=== PATIENT | male | born 1955 | race Caucasian/White ===

== ENCOUNTER 2020-11-24 15:59 | Inpatient (IN) | payer BC, OTHER ==
[~2020-11-24] VITALS: Ht 170.2 cm; Wt 97.0 kg
[2020-11-24 16:37] LABS: BASOPHILS # (AUTO) 0.1 X10'3 (0-0.2); EOSINOPHILS # (AUTO) 0.2 X10'3 (0-0.9); EOSINOPHILS % (AUTO) 2.1 % (0-6); HEMATOCRIT 40.6 % (42.0-52.0); HEMOGLOBIN 13.7 g/dl (14.0-17.9); LYMPHOCYTES # (AUTO) 1.7 X10'3 (1.1-4.8); LYMPHOCYTES % (AUTO) 23.1 % (21-51); MEAN CORPUSCULAR HEMOGLOBIN 30.3 PG (27.0-31.0); MEAN CORPUSCULAR HGB CONC 33.8 g/dL (33.0-36.5); MEAN CORPUSCULAR VOLUME 89.7 FL (78-98); MEAN PLATELET VOLUME 7.7 FL (7.4-10.4); MONOCYTES # (AUTO) 0.6 X10'3 (0-0.9); MONOCYTES % (AUTO) 7.9 % (2-12); NEUTROPHILS # (AUTO) 4.9 X10'3 (1.8-7.7); NEUTROPHILS % (AUTO) 65.9 % (42-75); PLATELET COUNT 219 X10'3 (140-440); RED BLOOD COUNT 4.52 X10'6 (4.70-6.10); WHITE BLOOD COUNT 7.4 X10'3 (4.5-11.0)
[2020-11-24 16:46] LABS: ALANINE AMINOTRANSFERASE 44 U/L (12-78); ALBUMIN 3.9 G/DL (3.4-5.0); ALKALINE PHOSPHATASE 41 IU/L (46-116); ANION GAP 8 (8-16); ASPARTATE AMINO TRANSFERASE 24 U/L (10-37); BILIRUBIN,TOTAL 0.6 MG/DL (0.1-1.0); BLOOD UREA NITROGEN 19 MG/DL (7-18); BUN/CREATININE RATIO 20.2 (5.4-32.0); CALCIUM 9.1 MG/DL (8.5-10.1); CHLORIDE 106 MMOL/L (99-107); CREATININE 0.94 MG/DL (0.60-1.10); GLUCOSE 93 MG/DL (70-104); POTASSIUM 4.3 MMOL/L (3.5-5.1); SODIUM 141 MMOL/L (135-145); TOTAL CARBON DIOXIDE 27.1 MMOL/L (24-32); TOTAL PROTEIN 7.7 G/DL (6.4-8.2); eGFR 81 ML/MIN
--- NOTE | 2020-11-24 16:53 | NUR ---
edgardo, pts called. informed her doing a cardiac work up, ekg, blood draws.
--- NOTE | 2020-11-24 16:56 | NUR ---
WITNESSED EPISODE OF COMPLETE BLOCK. PRINTOUT OBTAINED. S/S BLURRED VISION, HEAT AND PRESSURE RUSHING UP INTO HEAD, PRESSURE TO LEFT CHEST AREA. INFORMED ALEXANDRO MENSAH. WILL BE MOVING PT TO FRONT ROOM.
[2020-11-24 17:02] LABS: D-DIMER 1.26 MG/L FEU (0-0.50)
[2020-11-24] MEDS ORDERED: propofol 1000mg/100ml bottle 100 ML IV SCH (17:10)
[2020-11-24] MEDS ORDERED: ringers solution, lacted 1,000 ML IV SCH (17:30)
[2020-11-24] MEDS ORDERED: morphine 4 MG/ML inj SYRINge IV PRN (17:30)
[2020-11-24] MEDS ORDERED: ondansetron/PF 4mg/2ml inj IV PRN ×2 (17:30→19:00)
[2020-11-24] MEDS ORDERED: enalaprilat dihydrate 2.5mg/2ml vial IV PRN (17:30)
[2020-11-24] MEDS ORDERED: fentaNYL/PF 50MCG/1 ML 2ML syringe IV PRN ×2 (17:30)
[2020-11-24] MEDS ORDERED: hydrALAZINE 20mg/ml inj. IV PRN (17:30)
[2020-11-24] MEDS ORDERED: morphine 2 MG/ML inj. syringe IV PRN (17:30)
[2020-11-24] MEDS ORDERED: CHOL10006 PO (18:06)
[2020-11-24] MEDS ORDERED: ERGO500041 PO (18:06)
[2020-11-24] MEDS ORDERED: METO-395 PO (18:06)
[2020-11-24] MEDS ORDERED: LISI20TA28 PO (18:06)
[2020-11-24] MEDS ORDERED: SLEEP AID PO (18:08)
--- NOTE | 2020-11-24 18:50 | NUR ---
attempted to jayleen report to [facility]. floor states they will call er shortly
[2020-11-24] MEDS ORDERED: acetaminophen 325mg tablet PO PRN (19:00)
[2020-11-24] MEDS ORDERED: magnesium 2GM in 50ml NS 50 ML IV PRN (19:00)
[2020-11-24] MEDS ORDERED: magnesium 4gm in 100ml NS 100 ML IV PRN (19:00)
[2020-11-24] MEDS ORDERED: magnesium Cl slow-release 64mg tablet PO PRN (19:00)
[2020-11-24] MEDS ORDERED: potassium Cl 40MEQ/1/2NS 520ml 520 ML IV PRN ×2 (19:00)
[2020-11-24] MEDS ORDERED: potassium Cl 20 mEq SR tablet PO PRN ×2 (19:00)
--- NOTE | 2020-11-24 19:01 | NUR ---
dr josé at bedside
--- NOTE | 2020-11-24 19:02 | NUR ---
called [facility] for report . staff states they are busy and unable to take report. charge nurse notified
[2020-11-24] MEDS: K and/or MAG REPLACEMENT MC SCH (20:00)
[2020-11-24] MEDS: normal saline 1000ml 1,000 ML IV SCH (20:32)
[2020-11-24 22:05] VITALS: BP 147/84
--- NOTE | 2020-11-24 22:05 | NUR ---
Pt arrived in the unit from ER via gurney. Pt is in no acute distress and was oriented in the unit. VS : 147/84 72 bpm, 18 resp, O2 sat 96% in room air. MRSA swab done.
[2020-11-24] MEDS ORDERED: propofol inj 20 ML IV ONE ×2 (22:19→22:45)
[2020-11-24] MEDS ORDERED: LIDOcaine 1% 30ml preserv. free vial ONE (22:23)
--- NOTE | 2020-11-24 22:30 | NUR ---
Report given to PETR Causey prior to sending pt to OR. Pt was taken off the unit to OR @ 2230 for pacemaker placement with consent in the chart.
[2020-11-24] MEDS ORDERED: ceFAZolin 1000mg inj ONE ×2 (22:45)
[2020-11-25] VITALS (21 sets, daily range): BP systolic 98–142; BP diastolic 61–94
[2020-11-25] MEDS ORDERED: ceFAZolin/D5W- 1GM premix 50 ML IV SCH
--- NOTE | 2020-11-25 00:10 | NUR ---
ADMITTED TO PACU FROM OR ACCOMPANIED BY ANESTHESIA. INTIAL PHYSICAL ASSESSMENT DONE AND RECORDED. REPORT RECEIVED FROM ANESTHESIA.
--- NOTE | 2020-11-25 00:10 | NUR ---
ADMITTED TO PACU FROM OR ACCOMPANIED BY ANESTHESIA. INTIAL PHYSICAL ASSESSMENT DONE AND RECORDED. REPORT RECEIVED FROM ANESTHESIA.
[2020-11-25] MEDS ORDERED: ondansetron/PF 4mg/2ml inj IV PRN (00:15)
[2020-11-25] MEDS ORDERED: HYDROmorphone inj. 0.5 MG/0.5 ML DISP.SYRIN IV PRN (00:20)
--- NOTE | 2020-11-25 00:41 | NUR ---
Received post op report from PETR Causey.
--- NOTE | 2020-11-25 01:00 | NUR ---
PACU DISCHARGE CRITERIA MET, REPORT GIVEN TO FLOOR. DENIES PAIN OR DISCOMFORT, TRANSFERRED TO ROOM IN STABLE GOOD CONDITION. PCXR DONE DR MARION REVIEWED.
--- NOTE | 2020-11-25 01:24 | NUR ---
Pt's K+ level is 4.3. Dr. Arnold ordered to hold KCL 20 mEq in D5W-1/2 NS bag until morning.
[2020-11-25] MEDS: HYDROcodone/acetaminophen 10/325mg tab PO PRN ×3 (03:12→23:17)
[2020-11-25 05:21] LABS: BASOPHILS # (AUTO) 0.1 X10'3 (0-0.2); BASOPHILS % (AUTO) 0.7 % (0-1); EOSINOPHILS # (AUTO) 0.2 X10'3 (0-0.9); EOSINOPHILS % (AUTO) 1.9 % (0-6); HEMATOCRIT 40.8 % (42.0-52.0); HEMOGLOBIN 13.6 g/dl (14.0-17.9); LYMPHOCYTES # (AUTO) 1.6 X10'3 (1.1-4.8); LYMPHOCYTES % (AUTO) 18.3 % (21-51); MEAN CORPUSCULAR HEMOGLOBIN 30.3 PG (27.0-31.0); MEAN CORPUSCULAR HGB CONC 33.2 g/dL (33.0-36.5); MEAN CORPUSCULAR VOLUME 91.1 FL (78-98); MEAN PLATELET VOLUME 8.2 FL (7.4-10.4); MONOCYTES # (AUTO) 0.6 X10'3 (0-0.9); MONOCYTES % (AUTO) 6.5 % (2-12); NEUTROPHILS # (AUTO) 6.4 X10'3 (1.8-7.7); NEUTROPHILS % (AUTO) 72.6 % (42-75); PLATELET COUNT 211 X10'3 (140-440); RED BLOOD COUNT 4.48 X10'6 (4.70-6.10); RED CELL DISTRIBUTION WIDTH 13.9 % (11.5-14.5); WHITE BLOOD COUNT 8.8 X10'3 (4.5-11.0)
[2020-11-25 05:34] LABS: ALBUMIN 3.3 G/DL (3.4-5.0); ANION GAP 7 (8-16); BLOOD UREA NITROGEN 19 MG/DL (7-18); BUN/CREATININE RATIO 21.1 (5.4-32.0); CALCIUM 8.7 MG/DL (8.5-10.1); CHLORIDE 108 MMOL/L (99-107); GLUCOSE 157 MG/DL (70-104); MAGNESIUM 1.9 MG/DL (1.5-2.4); POTASSIUM 3.9 MMOL/L (3.5-5.1); SODIUM 141 MMOL/L (135-145); TOTAL CARBON DIOXIDE 25.7 MMOL/L (24-32); TRIGLYCERIDES 147 MG/DL (20-135); eGFR 85 ML/MIN
--- NOTE | 2020-11-25 05:46 | NUR ---
Pt who just had a pacemaker placed this morning had a Troponin lab order that was not cancelled. Troponin lab was checked this morning, and the result was expected to be high (0.54 ). MD was notified of the result and stated that it is expected.
--- NOTE | 2020-11-25 06:23 | NUR ---
Problems reprioritized. Patient report given, questions answered & plan of care reviewed with PETR Miles.
--- NOTE | 2020-11-25 06:25 | NUR ---
Patient in room PCU 3028. I have received report from PETR Matthew and had the opportunity to ask questions and assume patient care.
[2020-11-25] MEDS: ceFAZolin/D5W- 1GM premix 50 ML IV SCH ×3 (07:27→15:09)
[2020-11-25] MEDS ORDERED: [UNRECOGNIZED DRUG - CODE] PO (07:35)
[2020-11-25] MEDS ORDERED: MELA3CAP PO (07:35)
[2020-11-25] MEDS: K and/or MAG REPLACEMENT MC SCH ×2 (08:00→20:00)
[2020-11-25] MEDS: potassium CL 20mEq in D5-1/2NS 1,000 ML IV SCH ×3 (08:15→16:15)
--- NOTE | 2020-11-25 14:25 | NUR ---
Problems reprioritized. Patient report given, questions answered & plan of care reviewed with PETR Navarro.
--- NOTE | 2020-11-25 14:55 | NUR ---
Called CT Scan for contrast form, IV and average heart rates. After obtaining all information it was advised to contact Danii at [facility] to input orders to obtain a heart rate only in the 65s. Called Kari at [phone] who acknowledged Lopressor meds and will input orders when can. After orders give to pt and keep in contact with CT, pt in wheelchair and ready.
[2020-11-25 15:07] LABS: HEMOGLOBIN A1C 6.2 % (4.5-6.2)
[2020-11-25] MEDS ORDERED: metoprolol tartrate 1mg/ml inj IV PRN (16:05)
[2020-11-25] MEDS ORDERED: atropine 0.1mg/ml 10ml syringe IV PRN (16:10)
[2020-11-25] MEDS ORDERED: IODIXANOL 320 MG/ML 150ml INFUS..BTL IV ONE (17:00)
[2020-11-25] MEDS ORDERED: MELATONIN PO PRN (17:10)
[2020-11-25] MEDS ORDERED: [UNRECOGNIZED DRUG - OTHER] PO PRN (17:10)
[2020-11-25] MEDS ORDERED: [UNRECOGNIZED DRUG - OTHER] PO PRN (17:10)
[2020-11-25] MEDS: vitamin D (cholecalciferol) 1,000 unit tablet PO SCH (19:41)
[2020-11-25] MEDS ORDERED: lactobacillus rhamnosus 10,000 MMU CELLS/CAPSULE PO SCH (20:00)
[2020-11-25] MEDS: lisinopril 20mg tablet PO SCH (20:46)
[2020-11-25] MEDS ORDERED: diphenhydrAMINE 25mg capsule PO PRN (22:20)
[2020-11-25] MEDS: normal saline 1000ml 1,000 ML IV SCH (22:20)
[2020-11-26] VITALS (12 sets, daily range): BP systolic 95–143; BP diastolic 59–83
[2020-11-26 06:09] LABS: BASOPHILS # (AUTO) 0.1 X10'3 (0-0.2); BASOPHILS % (AUTO) 0.7 % (0-1); EOSINOPHILS # (AUTO) 0.3 X10'3 (0-0.9); EOSINOPHILS % (AUTO) 3.7 % (0-6); HEMATOCRIT 42.4 % (42.0-52.0); HEMOGLOBIN 14.4 g/dl (14.0-17.9); LYMPHOCYTES # (AUTO) 2.3 X10'3 (1.1-4.8); LYMPHOCYTES % (AUTO) 24.7 % (21-51); MEAN CORPUSCULAR HEMOGLOBIN 30.7 PG (27.0-31.0); MEAN CORPUSCULAR VOLUME 90.3 FL (78-98); MEAN PLATELET VOLUME 7.9 FL (7.4-10.4); MONOCYTES # (AUTO) 1.1 X10'3 (0-0.9); NEUTROPHILS # (AUTO) 5.4 X10'3 (1.8-7.7); NEUTROPHILS % (AUTO) 58.9 % (42-75); PLATELET COUNT 208 X10'3 (140-440); RED BLOOD COUNT 4.69 X10'6 (4.70-6.10); RED CELL DISTRIBUTION WIDTH 13.9 % (11.5-14.5); WHITE BLOOD COUNT 9.1 X10'3 (4.5-11.0)
[2020-11-26 06:27] LABS: ALBUMIN 3.4 G/DL (3.4-5.0); ANION GAP 6 (8-16); BLOOD UREA NITROGEN 16 MG/DL (7-18); BUN/CREATININE RATIO 15.1 (5.4-32.0); CHLORIDE 106 MMOL/L (99-107); CREATININE 1.06 MG/DL (0.60-1.10); GLUCOSE 105 MG/DL (70-104); MAGNESIUM 1.9 MG/DL (1.5-2.4); POTASSIUM 4.6 MMOL/L (3.5-5.1); SODIUM 141 MMOL/L (135-145); TOTAL CARBON DIOXIDE 28.6 MMOL/L (24-32); eGFR 71 ML/MIN
[2020-11-26] MEDS: K and/or MAG REPLACEMENT MC SCH (08:00)
[2020-11-26] MEDS: metoprolol succinate 25mg (24-HOUR) SR. Tablet PO SCH (08:47)
[2020-11-26] MEDS: vitamin D (cholecalciferol) 1,000 unit tablet PO SCH ×2 (08:47→19:36)
[2020-11-26] MEDS ORDERED: midazolam 1 mg/ML 2ml injection ONE ×2 (16:54→17:34)
[2020-11-26] MEDS ORDERED: fentaNYL/PF 50MCG/1 ML 2ML syringe ONE (16:55)
[2020-11-26] MEDS ORDERED: LIDOcaine 1% (10mg/ml)w/preservative injection 20ml MDV ONE (16:55)
[2020-11-26] MEDS ORDERED: iohexol 350MG/ML 100ml bottle IV ONE ×2 (16:55→18:03)
[2020-11-26] MEDS: normal saline 1000ml 1,000 ML IV SCH ×2 (18:20→19:00)
--- NOTE | 2020-11-26 18:50 | NUR ---
Pt. returned fr/cardiac blood bank laboratory technician in no acute distress. Spouse at bedside. Educated to post cath instructions such as immobility, VS and groin check freq, and IV fluids f/following 6HRS. Food/fluids given. R groin is soft and non tender, sml drsg CDI. Pedal pulse palpable. VSS.
--- NOTE | 2020-11-26 18:52 | NUR ---
Patient in room PCU 3028. I have received report from Queenie HUMPHREYS and had the opportunity to ask questions and assume patient care.
[2020-11-26] MEDS ORDERED: proCHLORperazine 10 MG/2 ml inj IV PRN (19:20)
[2020-11-26] MEDS ORDERED: nitroGLYCERIN 0.4mg SUBLingual tab SL PRN (19:20)
[2020-11-26] MEDS ORDERED: HYDROcodone/acetaminophen 5mg/325mg tablet PO PRN (19:20)
[2020-11-26] MEDS: HYDROcodone/acetaminophen 10/325mg tab PO PRN (19:37)
[2020-11-26 19:54] LABS: CHOL/HDL RATIO 4.2 (0.00-4.99); CHOLESTEROL 190 MG/DL (0-200); HDL CHOLESTEROL 45 MG/DL (35-60); LDL CHOLESTEROL 125 MG/DL (50-100); TRIGLYCERIDES 118 MG/DL (20-135)
[2020-11-26] MEDS: lisinopril 20mg tablet PO SCH (22:15)
[2020-11-27] MEDS: OXAZEpam 15mg capsule PO PRN ×2 (00:54→23:17)
[2020-11-27] MEDS: HYDROcodone/acetaminophen 10/325mg tab PO PRN ×2 (00:55→20:24)
[2020-11-27 02:00] VITALS: BP 117/72
[2020-11-27 06:26] LABS: ALBUMIN 3.5 G/DL (3.4-5.0); ANION GAP 7 (8-16); BASOPHILS # (AUTO) 0.1 X10'3 (0-0.2); BASOPHILS % (AUTO) 0.7 % (0-1); BLOOD UREA NITROGEN 20 MG/DL (7-18); BUN/CREATININE RATIO 23.5 (5.4-32.0); CALCIUM 9.1 MG/DL (8.5-10.1); CHLORIDE 101 MMOL/L (99-107); CREATININE 0.85 MG/DL (0.60-1.10); EOSINOPHILS # (AUTO) 0.1 X10'3 (0-0.9); EOSINOPHILS % (AUTO) 1.5 % (0-6); GLUCOSE 108 MG/DL (70-104); HEMATOCRIT 41.4 % (42.0-52.0); LYMPHOCYTES # (AUTO) 1.2 X10'3 (1.1-4.8); MAGNESIUM 1.9 MG/DL (1.5-2.4); MEAN CORPUSCULAR HEMOGLOBIN 30.5 PG (27.0-31.0); MEAN CORPUSCULAR HGB CONC 33.7 g/dL (33.0-36.5); MEAN CORPUSCULAR VOLUME 90.4 FL (78-98); MEAN PLATELET VOLUME 7.7 FL (7.4-10.4); MONOCYTES # (AUTO) 0.8 X10'3 (0-0.9); MONOCYTES % (AUTO) 8.8 % (2-12); NEUTROPHILS # (AUTO) 7.2 X10'3 (1.8-7.7); PLATELET COUNT 182 X10'3 (140-440); POTASSIUM 4.2 MMOL/L (3.5-5.1); RED BLOOD COUNT 4.58 X10'6 (4.70-6.10); RED CELL DISTRIBUTION WIDTH 13.6 % (11.5-14.5); SODIUM 135 MMOL/L (135-145); TOTAL CARBON DIOXIDE 27.4 MMOL/L (24-32); WHITE BLOOD COUNT 9.5 X10'3 (4.5-11.0); eGFR > 90 ML/MIN
--- NOTE | 2020-11-27 06:51 | NUR ---
Patient in room PCU 3028. I have received report from Bekah HUMPHREYS and had the opportunity to ask questions and assume patient care.
--- NOTE | 2020-11-27 06:53 | NUR ---
Problems reprioritized. Patient report given, questions answered & plan of care reviewed with Bettye HUMPHREYS.
[2020-11-27 07:00] VITALS: BP 143/77
[2020-11-27] MEDS: K and/or MAG REPLACEMENT MC SCH ×2 (08:00→20:00)
[2020-11-27] MEDS: vitamin D (cholecalciferol) 1,000 unit tablet PO SCH ×2 (08:53→20:22)
[2020-11-27] MEDS: metoprolol succinate 25mg (24-HOUR) SR. Tablet PO SCH (08:53)
--- NOTE | 2020-11-27 10:12 | NUR ---
Dt. mondragon with appointment with cardiology. Will continue to and nurse, will continue to monitor.
[2020-11-27] MEDS ORDERED: MESSAGE TO NURSING PO ONE ×2 (10:50)
[2020-11-27 11:00] VITALS: BP 105/82
[2020-11-27 15:00] VITALS: BP 112/71
[2020-11-27 18:00] VITALS: BP 109/77
--- NOTE | 2020-11-27 18:16 | NUR ---
Patient in room PCU 3028. I have received report from Bettye HUMPHREYS and had the opportunity to ask questions and assume patient care.
--- NOTE | 2020-11-27 18:16 | NUR ---
Problems reprioritized. Patient report given, questions answered & plan of care reviewed with Bekah HUMPHREYS.
[2020-11-27] MEDS ORDERED: mupirocin 2% nasal ointment 1gm UD NS SCH (20:00)
[2020-11-27] MEDS: lisinopril 20mg tablet PO SCH (20:22)
[2020-11-27] MEDS: metoprolol tartrate 12.5mg (1/2 tablet) PO SCH (20:23)
[2020-11-27 22:00] VITALS: BP 113/73
[2020-11-28 02:00] VITALS: BP 102/65
[2020-11-28] MEDS: HYDROcodone/acetaminophen 10/325mg tab PO PRN (02:41)
[2020-11-28] MEDS ORDERED: MESSAGE TO NURSING PO ONE ×2 (05:30→10:35)
[2020-11-28 06:00] VITALS: BP 101/57
[2020-11-28 06:12] LABS: ALBUMIN 3.5 G/DL (3.4-5.0); ANION GAP 10 (8-16); BLOOD UREA NITROGEN 21 MG/DL (7-18); BUN/CREATININE RATIO 21.2 (5.4-32.0); CALCIUM 9.3 MG/DL (8.5-10.1); CHLORIDE 104 MMOL/L (99-107); CREATININE 0.99 MG/DL (0.60-1.10); GLUCOSE 102 MG/DL (70-104); MAGNESIUM 1.8 MG/DL (1.5-2.4); POTASSIUM 4.4 MMOL/L (3.5-5.1); SODIUM 141 MMOL/L (135-145); TOTAL CARBON DIOXIDE 27.1 MMOL/L (24-32); eGFR 76 ML/MIN
[2020-11-28 06:16] LABS: BASOPHILS # (AUTO) 0.1 X10'3 (0-0.2); BASOPHILS % (AUTO) 0.5 % (0-1); EOSINOPHILS # (AUTO) 0.2 X10'3 (0-0.9); EOSINOPHILS % (AUTO) 1.9 % (0-6); HEMATOCRIT 43.5 % (42.0-52.0); HEMOGLOBIN 14.4 g/dl (14.0-17.9); LYMPHOCYTES # (AUTO) 1.9 X10'3 (1.1-4.8); LYMPHOCYTES % (AUTO) 16.8 % (21-51); MEAN CORPUSCULAR HEMOGLOBIN 30.6 PG (27.0-31.0); MEAN CORPUSCULAR HGB CONC 33.1 g/dL (33.0-36.5); MEAN CORPUSCULAR VOLUME 92.3 FL (78-98); MEAN PLATELET VOLUME 8.4 FL (7.4-10.4); MONOCYTES # (AUTO) 1.3 X10'3 (0-0.9); MONOCYTES % (AUTO) 11.6 % (2-12); NEUTROPHILS # (AUTO) 7.8 X10'3 (1.8-7.7); NEUTROPHILS % (AUTO) 69.2 % (42-75); PLATELET COUNT 187 X10'3 (140-440); RED BLOOD COUNT 4.71 X10'6 (4.70-6.10); RED CELL DISTRIBUTION WIDTH 14.1 % (11.5-14.5); WHITE BLOOD COUNT 11.2 X10'3 (4.5-11.0)
--- NOTE | 2020-11-28 07:09 | NUR ---
Problems reprioritized. Patient report given, questions answered & plan of care reviewed with Rekha HUMPHREYS.
--- NOTE | 2020-11-28 07:10 | NUR ---
Patient in room PCU 3028. I have received report from Prudence HUMPHREYS and had the opportunity to ask questions and assume patient care.
[2020-11-28] MEDS: K and/or MAG REPLACEMENT MC SCH ×2 (07:50→19:47)
[2020-11-28] MEDS: vitamin D (cholecalciferol) 1,000 unit tablet PO SCH ×2 (08:20→19:44)
[2020-11-28] MEDS: metoprolol tartrate 12.5mg (1/2 tablet) PO SCH ×3 (08:21→20:00)
--- NOTE | 2020-11-28 10:00 | NUR ---
Paged RT to inform them about PFT order.
[2020-11-28] MEDS ORDERED: benzonatate 100mg capsule PO PRN (10:10)
[2020-11-28] MEDS ORDERED: dextrose 50%-water 50ml dispensing syringe IV PRN (10:35)
--- NOTE | 2020-11-28 10:56 | NUR ---
Paged RT regarding ABG ordered.
[2020-11-28 11:00] VITALS: BP 91/58
[2020-11-28 11:40] LABS: ABG BASE EXCESS 1.3 mmol/L (-2.0-2.0); ABG HCO3 25.6 mmol/L (22.0-26.0); ABG OXYGEN SATURATION 93.4 % (94-97); ABG PCO2 (T) 39.6 mmHg (35.0-48.0); ABG PO2 (T) 64.6 mmHg (75.0-100.0); ALLEN'S TEST POSITIVE; FCOHb 1.3 % (0.0-3.9); FMetHb 0.2 % (0.0-1.5)
[2020-11-28 15:00] VITALS: BP 95/62
--- NOTE | 2020-11-28 15:56 | NUR ---
Initial: Pt admit DX severe aortic stenosis pending AVR tomorrow per EMR. Pt PO 100% avg heart healthy diet 4 days since admit meeting needs. LBM 11/27. No nutrition concerns at this time; will monitor for additional protein needs post-op. Rec: 1. continue heart healthy diet 2. monitor for additional protein/ONS needs once post-op 3. routine bowel care 4. scaled wt this admit Addendum: 11/28/20 at [address] Amended: Links added.
[2020-11-28 18:00] VITALS: BP 92/59
--- NOTE | 2020-11-28 18:10 | NUR ---
Patient in room PCU 3028. I have received report from Layla HUMPHREYS and had the opportunity to ask questions and assume patient care.
--- NOTE | 2020-11-28 18:16 | NUR ---
Problems reprioritized. Patient report given, questions answered & plan of care reviewed with PETR Reyes. Patient stable at time of transfer.
--- NOTE | 2020-11-28 18:20 | NUR ---
[place] documentation: I have reviewed and agree with all interventions, assessments performed and documented by Batool HUMPHREYS.
--- NOTE | 2020-11-28 18:21 | NUR ---
[place] Medication Administration: For this medication-pass time frame, all medication were reviewed, dispensed, administered and documented per hospital policy by Batool HUMPHREYS.
[2020-11-28] MEDS ORDERED: ringers solution, lacted 1,000 ML IV ONE (19:10)
[2020-11-28] MEDS: mupirocin 2% nasal ointment 1gm UD NS SCH (19:40)
[2020-11-28] MEDS: sod chloride 0.9% 10ml flush syringe IV SCH (20:00)
[2020-11-28 22:00] VITALS: BP 106/59
[2020-11-28] MEDS: lisinopril 20mg tablet PO SCH (22:41)
--- NOTE | 2020-11-28 23:08 | NUR ---
Patient reports dizziness following coughing Addendum: 11/28/20 at 2314 by Kristen Whaley RN Amended: Links added.
[2020-11-29] VITALS (18 sets, daily range): BP systolic 92–135; BP diastolic 58–80
[2020-11-29] MEDS ORDERED: MALTODEXTRIN/FRUCTOSE 0.68 KCAL/ML LIQUID 296ML BOTTLE PO ONE (05:00)
[2020-11-29] MEDS ORDERED: vancomycin/NS 1 GM ADD-VANTAGE 250 ML IV ONE (05:30)
[2020-11-29] MEDS ORDERED: gabapentin 400mg capsule PO ONE ×2 (05:30)
[2020-11-29] MEDS ORDERED: Insulin Reg/NS 100units/100mL 100 ML IV SCH ×2 (05:30→10:40)
[2020-11-29] MEDS ORDERED: insulin glargine (Lantus) pen - multi-dose SQ PRN ×2 (05:30→10:40)
[2020-11-29] MEDS ORDERED: MESSAGE TO NURSING PO ONE (05:30)
[2020-11-29] MEDS ORDERED: cefazolin/dext.iso 2gm/50ml 50 ML IV ONE (05:30)
[2020-11-29] MEDS ORDERED: vancomycin 1500mg/300ml PREMIX 250 ML IV ONE (05:30)
[2020-11-29] MEDS ORDERED: mupirocin 2% nasal ointment 1gm UD NS SCH (05:30)
[2020-11-29] MEDS ORDERED: LORazepam 2 mg/ml vial IV ONE (06:00)
[2020-11-29] MEDS ORDERED: ceFAZolin 2gm in dextrose, iso 50 ML IV ONE (06:00)
[2020-11-29] MEDS ORDERED: famotidine 20mg tablet PO ONE (06:00)
[2020-11-29] MEDS ORDERED: ceFAZolin 1000mg inj ONE (06:06)
--- NOTE | 2020-11-29 06:08 | NUR ---
[place]ee documentation: I have reviewed and agree with all interventions, assessments performed and documented by Kristen HUMPHREYS .
--- NOTE | 2020-11-29 06:10 | NUR ---
Patient in room PCU 3028. I have received report from PETR Reyes and had the opportunity to ask questions and assume patient care.
[2020-11-29 06:13] LABS: ALBUMIN 3.4 G/DL (3.4-5.0); ANION GAP 10 (8-16); BLOOD UREA NITROGEN 24 MG/DL (7-18); BUN/CREATININE RATIO 22.6 (5.4-32.0); CHLORIDE 104 MMOL/L (99-107); CREATININE 1.06 MG/DL (0.60-1.10); GLUCOSE 155 MG/DL (70-104); MAGNESIUM 2.1 MG/DL (1.5-2.4); POTASSIUM 4.2 MMOL/L (3.5-5.1); SODIUM 139 MMOL/L (135-145); TOTAL CARBON DIOXIDE 25.3 MMOL/L (24-32); eGFR 71 ML/MIN
[2020-11-29 06:14] LABS: BASOPHILS # (AUTO) 0.1 X10'3 (0-0.2); BASOPHILS % (AUTO) 0.9 % (0-1); EOSINOPHILS # (AUTO) 0.3 X10'3 (0-0.9); EOSINOPHILS % (AUTO) 2.5 % (0-6); HEMATOCRIT 41.3 % (42.0-52.0); HEMOGLOBIN 13.8 g/dl (14.0-17.9); LYMPHOCYTES # (AUTO) 1.5 X10'3 (1.1-4.8); LYMPHOCYTES % (AUTO) 15.2 % (21-51); MEAN CORPUSCULAR HEMOGLOBIN 30.4 PG (27.0-31.0); MEAN CORPUSCULAR HGB CONC 33.4 g/dL (33.0-36.5); MEAN CORPUSCULAR VOLUME 90.8 FL (78-98); MEAN PLATELET VOLUME 8.2 FL (7.4-10.4); MONOCYTES # (AUTO) 0.9 X10'3 (0-0.9); MONOCYTES % (AUTO) 9.1 % (2-12); NEUTROPHILS # (AUTO) 7.2 X10'3 (1.8-7.7); NEUTROPHILS % (AUTO) 72.3 % (42-75); PLATELET COUNT 176 X10'3 (140-440); RED BLOOD COUNT 4.55 X10'6 (4.70-6.10); RED CELL DISTRIBUTION WIDTH 13.9 % (11.5-14.5)
--- NOTE | 2020-11-29 06:22 | NUR ---
Problems reprioritized. Patient report given, questions answered & plan of care reviewed with Olivia HUMPHREYS.
--- NOTE | 2020-11-29 06:26 | NUR ---
Problems reprioritized. Patient report given, questions answered & plan of care reviewed with Olivia HUMPHREYS.
[2020-11-29] MEDS ORDERED: MIDAZolam 1mg/ml 10ml vial ONE (06:44)
[2020-11-29] MEDS ORDERED: SUFENTANIL CITRATE 50 MCG/ML 2ml ampule IV ONE (06:45)
[2020-11-29] MEDS ORDERED: LIDOcaine 2% 5ml jelly ONE (06:50)
[2020-11-29] MEDS ORDERED: 0.9 % SODIUM CHLORIDE 10 ML VIAL ONE (06:51)
[2020-11-29] MEDS ORDERED: propofol inj 20 ML IV ONE (06:51)
[2020-11-29] MEDS ORDERED: LIDOcaine 2% (20mg/ml) 5ml vial ONE (06:51)
[2020-11-29] MEDS ORDERED: phenylephrine 10mg/ml inj. ONE ×2 (06:51→06:52)
[2020-11-29] MEDS ORDERED: rocuronium 10mg/ml inj IV ONE ×2 (06:51)
[2020-11-29] MEDS ORDERED: DOPamine/D5W 400mg/250ml bag IV ONE (06:52)
[2020-11-29] MEDS ORDERED: aminocaproic acid 250 MG/1 ML inj. ONE ×2 (06:52→08:00)
[2020-11-29] MEDS ORDERED: NOREPINEPHRINE BITARTRATE/D5W 8 MG/250mL bag IV ONE (06:52)
[2020-11-29] MEDS ORDERED: nitroGLYCERIN in D5W 50mg/250ml (Tridil) infusion IV ONE (06:52)
[2020-11-29] MEDS ORDERED: isoflurane 100ml inhalation liquid IH ONE (06:52)
[2020-11-29] MEDS ORDERED: amiodarone in dextrose, iso-osm 150mg/100ml bag IV ONE (06:52)
[2020-11-29] MEDS ORDERED: protamine sulf. 10mg/ml inj. IV ONE (06:52)
[2020-11-29 07:46] LABS: ABG HCO3 25.4 mmol/L (22.0-26.0); ABG OXYGEN SATURATION 99.6 % (94-97); ABG PCO2 44.4 mmHg (35.0-48.0); ABG PO2 278.4 mmHg (75.0-100.0); CL (ABG) 107 mmol/L (98-110); FCOHb 0.9 % (0.0-3.9); FMetHb 0.1 % (0.0-1.5); FO2Hb 98.6 % (94-97); GLUCOSE (ABG) 124 mg/dl (70-140); IONIZED CA (ABG) 1.12 mmol/L (1.10-1.43); K (ABG) 3.8 mmol/L (3.5-5.0)
[2020-11-29] MEDS ORDERED: LIDOcaine 2% (20 mg/ml) 5ml cardiac syringe ONE (08:00)
[2020-11-29] MEDS ORDERED: calcium chloride 100 MG/1 ML inj IV ONE (08:00)
[2020-11-29] MEDS ORDERED: methylPREDNISolone sod succ 1000mg vial ONE (08:00)
[2020-11-29] MEDS ORDERED: heparin 10,000 units/1 ML INJ ONE (08:00)
[2020-11-29] MEDS ORDERED: albumin (human) 25% 100 ML IV solution IV ONE (08:00)
[2020-11-29] MEDS: mupirocin 2% nasal ointment 1gm UD NS SCH ×2 (08:00→20:13)
[2020-11-29] MEDS ORDERED: MAGNESIUM SULFATE 4 MEQ/ML (5gm/10ml) injection ONE (08:00)
[2020-11-29] MEDS ORDERED: sodium bicarbonate (8.4%) 1 mEq/ml syringe ONE (08:00)
[2020-11-29] MEDS: K and/or MAG REPLACEMENT MC SCH (08:00)
[2020-11-29] MEDS: vitamin D (cholecalciferol) 1,000 unit tablet PO SCH ×2 (08:00→20:00)
[2020-11-29] MEDS: metoprolol tartrate 12.5mg (1/2 tablet) PO SCH ×2 (08:00)
[2020-11-29] MEDS: sod chloride 0.9% 10ml flush syringe IV SCH (08:00)
[2020-11-29] MEDS ORDERED: FENTANYL-0.9 % NACL/PF 100 ML IV PRN (08:20)
[2020-11-29] MEDS ORDERED: midazolam 1 mg/ML 2ml injection IV ONE (08:20)
[2020-11-29] MEDS ORDERED: fentaNYL/PF 50MCG/1 ML 2ML syringe IV PRN (08:20)
[2020-11-29] MEDS ORDERED: midazolam 100mg in NS 100ml 100 ML IV PRN (08:20)
[2020-11-29 08:26] LABS: ABG BASE EXCESS VENOUS 2.1 mmol/L; ABG HCO3 VENOUS 28.8 mmol/L; ABG PCO2 VENOUS 56.2 mmHg; CL (ABG) 102 mmol/L (98-110); FCOHb VENOUS 0.8 %; FHHb VENOUS 12.1 %; FMetHb VENOUS 0.4 %; FO2Hb VENOUS 86.7 %; GLUCOSE (ABG) 90 mg/dl (70-140); IONIZED CA (ABG) 1.01 mmol/L (1.10-1.43); K (ABG) 4.4 mmol/L (3.5-5.0); TOTAL HEMOGLOBIN 9.8 G/dl (14.0-18.0)
[2020-11-29 08:29] LABS: ABG HCO3 25.6 mmol/L (22.0-26.0); ABG OXYGEN SATURATION 99.7 % (94-97); ABG PCO2 46.4 mmHg (35.0-48.0); CL (ABG) 104 mmol/L (98-110); FCOHb 0.5 % (0.0-3.9); FMetHb 0.3 % (0.0-1.5); FO2Hb 98.9 % (94-97); GLUCOSE (ABG) 90 mg/dl (70-140); IONIZED CA (ABG) 1.03 mmol/L (1.10-1.43); K (ABG) 4.5 mmol/L (3.5-5.0); TOTAL HEMOGLOBIN 9.7 G/dl (14.0-18.0)
[2020-11-29 09:00] LABS: ABG BASE EXCESS -1.9 mmol/L (-2.0-2.0); ABG HCO3 23.9 mmol/L (22.0-26.0); ABG OXYGEN SATURATION 99.6 % (94-97); ABG PCO2 45.6 mmHg (35.0-48.0); ABG PO2 327.9 mmHg (75.0-100.0); CL (ABG) 103 mmol/L (98-110); FCOHb 0.7 % (0.0-3.9); FMetHb 0.3 % (0.0-1.5); FO2Hb 98.6 % (94-97); GLUCOSE (ABG) 129 mg/dl (70-140); IONIZED CA (ABG) 1.08 mmol/L (1.10-1.43); K (ABG) 4.4 mmol/L (3.5-5.0); TOTAL HEMOGLOBIN 10.8 G/dl (14.0-18.0)
[2020-11-29 09:21] LABS: ABG BASE EXCESS -2.8 mmol/L (-2.0-2.0); ABG HCO3 20.9 mmol/L (22.0-26.0); ABG OXYGEN SATURATION 99.4 % (94-97); ABG PCO2 32.4 mmHg (35.0-48.0); CL (ABG) 101 mmol/L (98-110); FCOHb 0.5 % (0.0-3.9); FMetHb 0.3 % (0.0-1.5); FO2Hb 98.6 % (94-97); GLUCOSE (ABG) 139 mg/dl (70-140); IONIZED CA (ABG) 1.04 mmol/L (1.10-1.43); K (ABG) 4.4 mmol/L (3.5-5.0); TOTAL HEMOGLOBIN 9.9 G/dl (14.0-18.0)
[2020-11-29 09:48] LABS: ABG BASE EXCESS -1.9 mmol/L (-2.0-2.0); ABG HCO3 21.6 mmol/L (22.0-26.0); ABG OXYGEN SATURATION 98.6 % (94-97); ABG PCO2 32.1 mmHg (35.0-48.0); ABG PO2 136.8 mmHg (75.0-100.0); CL (ABG) 104 mmol/L (98-110); FCOHb 0.4 % (0.0-3.9); FMetHb 0.3 % (0.0-1.5); FO2Hb 97.9 % (94-97); GLUCOSE (ABG) 149 mg/dl (70-140); IONIZED CA (ABG) 1.21 mmol/L (1.10-1.43); K (ABG) 4.5 mmol/L (3.5-5.0); TOTAL HEMOGLOBIN 10.1 G/dl (14.0-18.0)
[2020-11-29 09:50] LABS: ACTIVATED CLOTTING TIME 95 SEC (101-148)
[2020-11-29 10:06] LABS: ACT @ 1.70 U 262 SEC (193-297); ACT @ 2.84 U 339 SEC (260-420); BASELINE ACT 135 SEC (101-148); PATIENT WEIGHT 97.0k KG
[2020-11-29] MEDS ORDERED: ondansetron/PF 4mg/2ml inj ONE (10:30)
[2020-11-29] MEDS ORDERED: dexamethasone sod phosphate 4mg/ml inj. ONE (10:30)
[2020-11-29] MEDS ORDERED: DOPamine 400mg/D5W 250ml 250 ML IV PRN (10:40)
[2020-11-29] MEDS ORDERED: pantoprazole 40 MG vial IV ONE (10:40)
[2020-11-29] MEDS ORDERED: niCARDipine-NS 40mg/200ml IVPB 200 ML IV PRN ×3 (10:40→11:10)
[2020-11-29] MEDS ORDERED: normal saline 250ml IV soln 250 ML IV PRN (10:40)
[2020-11-29] MEDS ORDERED: ondansetron/PF 4mg/2ml inj IV PRN (10:40)
[2020-11-29] MEDS ORDERED: nitroGLYCERIN-Tridil 50MG/D5W 250 ML IV PRN ×2 (10:40→11:04)
[2020-11-29] MEDS ORDERED: potassium Cl 20 mEq SR tablet PO PRN (10:40)
[2020-11-29] MEDS ORDERED: sodium chloride 0.45% 1,000 ML IV SCH (10:40)
[2020-11-29] MEDS ORDERED: acetaminophen 325mg tablet PO PRN ×2 (10:40)
[2020-11-29] MEDS ORDERED: potassium Cl 40MEQ/1/2NS 520ml 520 ML IV PRN (10:40)
[2020-11-29] MEDS ORDERED: bisacodyl 10mg suppository rectal RC PRN (10:40)
[2020-11-29] MEDS ORDERED: potassium Cl 40MEQ/250ML bag 250 ML IV PRN (10:40)
[2020-11-29] MEDS ORDERED: sodium phosphate inj. 15 MMOL in dextrose 5%-water 250 ML IV PRN (10:40)
[2020-11-29] MEDS ORDERED: albumin (Human) 5% 250ml 250 ML IV PRN (10:40)
[2020-11-29] MEDS ORDERED: sodium phosphate inj. 30 MMOL in dextrose 5%-water 250 ML IV PRN (10:40)
[2020-11-29] MEDS ORDERED: magnesium citrate 296ml oral solution PO PRN (10:40)
[2020-11-29] MEDS ORDERED: magnesium hydroxide 30ml (MOM) UD suspension PO PRN (10:40)
[2020-11-29] MEDS ORDERED: potassium Cl 20mEq/100mL bag 100 ML IV PRN (10:40)
[2020-11-29] MEDS ORDERED: magnesium 4gm in 100ml NS 100 ML IV PRN (10:40)
[2020-11-29] MEDS ORDERED: potassium CL 10mEq/100ml bag 100 ML IV PRN (10:40)
[2020-11-29] MEDS ORDERED: dextrose 50%-water 50ml dispensing syringe IV PRN (10:40)
[2020-11-29] MEDS ORDERED: metoclopramide 5 mg/ml inj IV PRN (10:40)
[2020-11-29] MEDS ORDERED: mineral oil 133ml enema RC PRN (10:40)
[2020-11-29] MEDS ORDERED: morphine 4 MG/ML inj SYRINge IV PRN (10:40)
[2020-11-29] MEDS ORDERED: Neutra Phos packet PO PRN (10:40)
[2020-11-29 10:56] LABS: ABG BASE EXCESS -2.9 mmol/L (-2.0-2.0); ABG HCO3 22.6 mmol/L (22.0-26.0); ABG OXYGEN SATURATION 99.1 % (94-97); ABG PCO2 (T) 41.7 mmHg (35.0-48.0); ABG PO2 (T) 217.7 mmHg (75.0-100.0); FCOHb 0.3 % (0.0-3.9); FMetHb 0.4 % (0.0-1.5); FO2Hb 98.4 % (94-97); PEEP 5 cm H2O; RESPIRATORY RATE 12 b/min; TIDAL VOLUME 600 mL; TOTAL HEMOGLOBIN 12.9 G/dl (14.0-18.0)
[2020-11-29] MEDS: Insulin Reg/NS 100units/100mL 100 ML IV SCH ×2 (11:28→16:57)
[2020-11-29 11:32] LABS: BASOPHILS # (AUTO) 0.1 X10'3 (0-0.2); BASOPHILS % (AUTO) 0.4 % (0-1); EOSINOPHILS # (AUTO) 0.1 X10'3 (0-0.9); EOSINOPHILS % (AUTO) 0.9 % (0-6); HEMATOCRIT 36.2 % (42.0-52.0); HEMOGLOBIN 12.1 g/dl (14.0-17.9); LYMPHOCYTES # (AUTO) 0.8 X10'3 (1.1-4.8); MEAN CORPUSCULAR HEMOGLOBIN 30.4 PG (27.0-31.0); MEAN CORPUSCULAR HGB CONC 33.4 g/dL (33.0-36.5); MEAN PLATELET VOLUME 8.5 FL (7.4-10.4); MONOCYTES # (AUTO) 0.9 X10'3 (0-0.9); NEUTROPHILS # (AUTO) 13.2 X10'3 (1.8-7.7); NEUTROPHILS % (AUTO) 87.7 % (42-75); PLATELET COUNT 111 X10'3 (140-440); RED BLOOD COUNT 3.98 X10'6 (4.70-6.10)
[2020-11-29 11:46] LABS: PARTIAL THROMBOPLASTIN TIME 31 SECONDS (22-32)
[2020-11-29 11:51] LABS: ALANINE AMINOTRANSFERASE 35 U/L (12-78); ALBUMIN 2.9 G/DL (3.4-5.0); ALBUMIN/GLOBULIN RATIO 1.1 (1.1-1.5); ALKALINE PHOSPHATASE 32 IU/L (46-116); ANION GAP 7 (8-16); ASPARTATE AMINO TRANSFERASE 39 U/L (10-37); BILIRUBIN,TOTAL 1.1 MG/DL (0.1-1.0); BLOOD UREA NITROGEN 21 MG/DL (7-18); BUN/CREATININE RATIO 19.6 (5.4-32.0); CALCIUM 8.6 MG/DL (8.5-10.1); CHLORIDE 109 MMOL/L (99-107); CREATININE 1.07 MG/DL (0.60-1.10); GLUCOSE 161 MG/DL (70-104); POTASSIUM 4.9 MMOL/L (3.5-5.1); SODIUM 142 MMOL/L (135-145); TOTAL CARBON DIOXIDE 26.3 MMOL/L (24-32); TOTAL PROTEIN 5.6 G/DL (6.4-8.2); eGFR 70 ML/MIN
[2020-11-29 11:53] LABS: MAGNESIUM 2.4 MG/DL (1.5-2.4); PHOSPHORUS 2.8 MG/DL (2.3-4.5)
[2020-11-29] MEDS: magnesium 2GM in 50ml NS 50 ML IV PRN ×2 (12:04→17:27)
[2020-11-29] MEDS: NOREPINEPHRINE BITARTRATE/D5W 250 ML IV SCH ×2 (12:15→19:55)
[2020-11-29] MEDS: ketorolac tromethamine 15mg/ml inj. IV SCH ×2 (13:12→20:12)
[2020-11-29] MEDS: gabapentin 300mg capsule PO SCH (13:12)
[2020-11-29] MEDS: morphine 4 MG/ML inj SYRINge IV PRN ×2 (13:12→20:40)
--- NOTE | 2020-11-29 13:43 | NUR ---
Received to room 2038, accompanied by MD Arellano and surgical crew. Placed on ventilator, to surveillance system monitor, arterial line and PA line pressure monitored. Chest tubes to suction at 20 cm. Conti cath to gravity drainage. Dressings are dry and intact. See assessment record. All vasoactive drugs are infusing via central line including Nitro, Dopamine, Levophed, Insulin.
[2020-11-29] MEDS: ceFAZolin/D5W- 1GM premix 50 ML IV SCH (15:21)
--- NOTE | 2020-11-29 15:23 | NUR ---
CABG Consult: Pt s/p AVR and would benefit from written/verbal high protein/HH diet eds once stable prior to discharge. Addendum: 11/29/20 at [address] Amended: Links added.
[2020-11-29] MEDS ORDERED: potassium Cl 2 mEq/ml inj IV ONE (16:00)
[2020-11-29 17:01] LABS: BASOPHILS % (AUTO) 0.3 % (0-1); EOSINOPHILS % (AUTO) 0 % (0-6); HEMATOCRIT 36.8 % (42.0-52.0); HEMOGLOBIN 12.4 g/dl (14.0-17.9); LYMPHOCYTES # (AUTO) 0.2 X10'3 (1.1-4.8); LYMPHOCYTES % (AUTO) 2.2 % (21-51); MEAN CORPUSCULAR HEMOGLOBIN 30.4 PG (27.0-31.0); MEAN CORPUSCULAR HGB CONC 33.6 g/dL (33.0-36.5); MEAN CORPUSCULAR VOLUME 90.4 FL (78-98); MEAN PLATELET VOLUME 8.5 FL (7.4-10.4); MONOCYTES # (AUTO) 0.3 X10'3 (0-0.9); NEUTROPHILS # (AUTO) 10.4 X10'3 (1.8-7.7); NEUTROPHILS % (AUTO) 94.5 % (42-75); PLATELET COUNT 112 X10'3 (140-440); RED BLOOD COUNT 4.07 X10'6 (4.70-6.10); RED CELL DISTRIBUTION WIDTH 13.5 % (11.5-14.5)
[2020-11-29 17:12] LABS: ALBUMIN 3.4 G/DL (3.4-5.0); ANION GAP 9 (8-16); BLOOD UREA NITROGEN 21 MG/DL (7-18); BUN/CREATININE RATIO 17.8 (5.4-32.0); CALCIUM 8.4 MG/DL (8.5-10.1); CHLORIDE 109 MMOL/L (99-107); CREATININE 1.18 MG/DL (0.60-1.10); GLUCOSE 142 MG/DL (70-104); MAGNESIUM 2.4 MG/DL (1.5-2.4); POTASSIUM 4.5 MMOL/L (3.5-5.1); SODIUM 143 MMOL/L (135-145); TOTAL CARBON DIOXIDE 25.2 MMOL/L (24-32); eGFR 62 ML/MIN
[2020-11-29 17:31] LABS: ABG BASE EXCESS -1.3 mmol/L (-2.0-2.0); ABG HCO3 23.8 mmol/L (22.0-26.0); ABG OXYGEN SATURATION 96.4 % (94-97); ABG PCO2 (T) 42.1 mmHg (35.0-48.0); ABG PO2 (T) 91.8 mmHg (75.0-100.0); FCOHb 0.1 % (0.0-3.9); FMetHb 0.3 % (0.0-1.5); PATIENT TEMPERATURE 37.6; PEEP 5 cm H2O; RESPIRATORY RATE 12 b/min; TIDAL VOLUME 600 mL
--- NOTE | 2020-11-29 17:57 | NUR ---
ABG obtained. WNL. Waiting for pt. to wake up enough to participate in vent. weaning parameters. Remains on Levophed and Insulin gtts, as well as the ordered 1/2 NS. Chest tube output 130cc, urine output adequate.
--- NOTE | 2020-11-29 17:59 | NUR ---
Dtr. Priest called for second update. Called earlier in the shift.
--- NOTE | 2020-11-29 18:13 | NUR ---
Problems reprioritized. Patient report given, questions answered & plan of care reviewed with Katheryn HUMPHREYS.
--- NOTE | 2020-11-29 18:14 | NUR ---
Patient in room ICU 2038. I have received report from PETR Sanford and had the opportunity to ask questions and assume patient care. Patient is intubated not on any sedation. Patient responds to verbal stimuli and will wake up calm and follows commands. Patient is appropriate, nods head to questions. moves all extremities. Chest tube x2 to midline chest, draining to atrium to suction no air leak noted, 138ml output total. Patient denies any pain at this time. Patient falls back to sleep quickly.
[2020-11-29] MEDS: sennosides/docusate sodium tablet PO SCH (19:42)
[2020-11-29] MEDS: vancomycin/NS 1 GM ADD-VANTAGE 250 ML IV SCH (20:12)
--- NOTE | 2020-11-29 20:45 | NUR ---
Spoke to regarding pt having an episode of seizure like activity. Pt's heart rate, blood pressure and PA pressures dropped, sbp in the 60's pt eyes were dilated with up yip gaze. Pt not receiving volumes on the ventilator, pt had generalized full body myoclonic muscle moments lasting approximally [address] Arellano requested to have the critical care MD consult and Neurological consult as well. SOC consult placed at [address] Mon SOC second consult placed at [id number] Mon returned call, evaluated pt via tele med, post exam Dr. Mon did not feel it was necessary to have a neurological consult, that the pt vagale then had a seizure like event. He recommended that the pt would benefit from extubation. [address] Arellano reviewed Dr. Lowry recommendations, reviewed that Dr. Mon did not feel a neurological consult was needed, Dr. Arellano felt this was odd but stated that they would follow Dr Lowry recommendations
[2020-11-29 21:35] LABS: BASOPHILS % (AUTO) 0.1 % (0-1); EOSINOPHILS % (AUTO) 0 % (0-6); HEMATOCRIT 35.7 % (42.0-52.0); HEMOGLOBIN 11.8 g/dl (14.0-17.9); LYMPHOCYTES # (AUTO) 0.4 X10'3 (1.1-4.8); LYMPHOCYTES % (AUTO) 3.2 % (21-51); MEAN CORPUSCULAR HEMOGLOBIN 29.9 PG (27.0-31.0); MEAN CORPUSCULAR HGB CONC 33.1 g/dL (33.0-36.5); MEAN CORPUSCULAR VOLUME 90.5 FL (78-98); MEAN PLATELET VOLUME 8.9 FL (7.4-10.4); MONOCYTES # (AUTO) 0.5 X10'3 (0-0.9); MONOCYTES % (AUTO) 3.3 % (2-12); NEUTROPHILS # (AUTO) 12.6 X10'3 (1.8-7.7); NEUTROPHILS % (AUTO) 93.4 % (42-75); PLATELET COUNT 112 X10'3 (140-440); RED BLOOD COUNT 3.94 X10'6 (4.70-6.10); RED CELL DISTRIBUTION WIDTH 13.7 % (11.5-14.5); WHITE BLOOD COUNT 13.5 X10'3 (4.5-11.0)
[2020-11-29 21:36] LABS: ALANINE AMINOTRANSFERASE 37 U/L (12-78); ALBUMIN 3.2 G/DL (3.4-5.0); ALBUMIN/GLOBULIN RATIO 1.1 (1.1-1.5); ALKALINE PHOSPHATASE 33 IU/L (46-116); ANION GAP 9 (8-16); ASPARTATE AMINO TRANSFERASE 52 U/L (10-37); BILIRUBIN,TOTAL 0.7 MG/DL (0.1-1.0); BLOOD UREA NITROGEN 22 MG/DL (7-18); BUN/CREATININE RATIO 18.6 (5.4-32.0); CALCIUM 8.3 MG/DL (8.5-10.1); CHLORIDE 109 MMOL/L (99-107); CREATININE 1.18 MG/DL (0.60-1.10); GLUCOSE 171 MG/DL (70-104); MAGNESIUM 2.6 MG/DL (1.5-2.4); PHOSPHORUS 3.8 MG/DL (2.3-4.5); POTASSIUM 4.6 MMOL/L (3.5-5.1); SODIUM 141 MMOL/L (135-145); TOTAL CARBON DIOXIDE 23.3 MMOL/L (24-32); eGFR 62 ML/MIN
[2020-11-29 21:47] LABS: ABG BASE EXCESS -7.5 mmol/L (-2.0-2.0); ABG HCO3 16.9 mmol/L (22.0-26.0); ABG OXYGEN SATURATION 96.4 % (94-97); ABG PCO2 (T) 31.9 mmHg (35.0-48.0); ABG PO2 (T) 96.6 mmHg (75.0-100.0); ALLEN'S TEST POSITIVE; FCOHb 0.1 % (0.0-3.9); FMetHb 0.3 % (0.0-1.5); PATIENT TEMPERATURE 37.8; PEEP 5 cm H2O; TOTAL HEMOGLOBIN 12.1 G/dl (14.0-18.0)
[2020-11-30] VITALS (23 sets, daily range): BP systolic 97–136; BP diastolic 49–89
[2020-11-30] MEDS: atorvastatin 10mg tablet PO SCH ×2 (00:01→20:37)
[2020-11-30] MEDS: gabapentin 300mg capsule PO SCH ×4 (00:01→20:36)
[2020-11-30] MEDS: ceFAZolin/D5W- 1GM premix 50 ML IV SCH ×4 (00:03→23:48)
--- NOTE | 2020-11-30 02:26 | NUR ---
Patient appears to be resting comfortably.
[2020-11-30] MEDS: ketorolac tromethamine 15mg/ml inj. IV SCH ×2 (04:28→07:41)
[2020-11-30 04:32] LABS: PARTIAL THROMBOPLASTIN TIME 25 SECONDS (22-32)
[2020-11-30 04:33] LABS: BASOPHILS % (AUTO) 0 % (0-1); EOSINOPHILS % (AUTO) 0 % (0-6); HEMATOCRIT 33.6 % (42.0-52.0); HEMOGLOBIN 11.2 g/dl (14.0-17.9); LYMPHOCYTES # (AUTO) 0.4 X10'3 (1.1-4.8); LYMPHOCYTES % (AUTO) 2.6 % (21-51); MEAN CORPUSCULAR HEMOGLOBIN 30.4 PG (27.0-31.0); MEAN CORPUSCULAR HGB CONC 33.3 g/dL (33.0-36.5); MEAN CORPUSCULAR VOLUME 91.2 FL (78-98); MONOCYTES # (AUTO) 1.5 X10'3 (0-0.9); MONOCYTES % (AUTO) 9.1 % (2-12); NEUTROPHILS # (AUTO) 14.6 X10'3 (1.8-7.7); NEUTROPHILS % (AUTO) 88.3 % (42-75); PLATELET COUNT 108 X10'3 (140-440); RED BLOOD COUNT 3.68 X10'6 (4.70-6.10); RED CELL DISTRIBUTION WIDTH 14.1 % (11.5-14.5); WHITE BLOOD COUNT 16.6 X10'3 (4.5-11.0)
[2020-11-30 04:38] LABS: ALANINE AMINOTRANSFERASE 29 U/L (12-78); ALBUMIN 3.1 G/DL (3.4-5.0); ALKALINE PHOSPHATASE 33 IU/L (46-116); ANION GAP 8 (8-16); ASPARTATE AMINO TRANSFERASE 45 U/L (10-37); BILIRUBIN,TOTAL 0.6 MG/DL (0.1-1.0); BLOOD UREA NITROGEN 21 MG/DL (7-18); BUN/CREATININE RATIO 20.4 (5.4-32.0); CALCIUM 8.3 MG/DL (8.5-10.1); CHLORIDE 109 MMOL/L (99-107); CREATININE 1.03 MG/DL (0.60-1.10); GLUCOSE 134 MG/DL (70-104); MAGNESIUM 2.4 MG/DL (1.5-2.4); PHOSPHORUS 3.8 MG/DL (2.3-4.5); POTASSIUM 4.7 MMOL/L (3.5-5.1); SODIUM 142 MMOL/L (135-145); TOTAL CARBON DIOXIDE 24.8 MMOL/L (24-32); TOTAL PROTEIN 6.1 G/DL (6.4-8.2); eGFR 73 ML/MIN
--- NOTE | 2020-11-30 06:22 | NUR ---
Patient placed in chair position in bed. Continues to have hypotension when coughing.
--- NOTE | 2020-11-30 06:24 | NUR ---
Problems reprioritized. Patient report given, questions answered & plan of care reviewed with PETR Lowery.
[2020-11-30] MEDS: aspirin 325mg tablet, delayed-release (Ecotrin) PO SCH (07:41)
[2020-11-30] MEDS: mupirocin 2% nasal ointment 1gm UD NS SCH ×2 (07:41→19:52)
[2020-11-30] MEDS: vitamin D (cholecalciferol) 1,000 unit tablet PO SCH ×2 (07:41→19:53)
[2020-11-30] MEDS: sennosides/docusate sodium tablet PO SCH ×2 (07:41→19:53)
[2020-11-30] MEDS ORDERED: metoprolol tartrate 12.5mg (1/2 tablet) PO SCH (08:00)
[2020-11-30] MEDS: vancomycin/NS 1 GM ADD-VANTAGE 250 ML IV SCH ×2 (08:29→19:53)
[2020-11-30] MEDS: HYDROcodone/acetaminophen 10/325mg tab PO PRN ×3 (08:38→20:37)
[2020-11-30] MEDS ORDERED: dextrose ORAL solution 15 GM/59 ML bottle PO PRN ×2 (09:55)
[2020-11-30] MEDS ORDERED: glucagon, human recombinant 1mg kit SUBCUT PRN (09:55)
[2020-11-30] MEDS ORDERED: dextrose 50%-water 50ml dispensing syringe IV PRN ×2 (09:55)
[2020-11-30] MEDS ORDERED: insulin glargine (Lantus) pen - multi-dose SQ SCH (11:00)
[2020-11-30] MEDS: insulin Lispro (HumaLOG) vial - multi-dose SQ SCH ×2 (12:59→19:58)
[2020-11-30] MEDS ORDERED: mineral oil/petrolatum ophthal oint EACHEYE SCH (14:00)
[2020-11-30] MEDS: NOREPINEPHRINE BITARTRATE/D5W 250 ML IV SCH (15:45)
--- NOTE | 2020-11-30 18:16 | NUR ---
Problems reprioritized. Patient report given, questions answered & plan of care reviewed with Jerel RN.
[2020-11-30] MEDS: Insulin Reg/NS 100units/100mL 100 ML IV SCH (20:29)
[2020-11-30] MEDS: morphine 4 MG/ML inj SYRINge IV PRN (22:39)
[2020-12-01] VITALS (17 sets, daily range): BP systolic 87–121; BP diastolic 57–81
[2020-12-01 04:36] LABS: BASOPHILS % (AUTO) 0.1 % (0-1); EOSINOPHILS % (AUTO) 0 % (0-6); HEMATOCRIT 28.4 % (42.0-52.0); HEMOGLOBIN 9.4 g/dl (14.0-17.9); LYMPHOCYTES # (AUTO) 0.7 X10'3 (1.1-4.8); LYMPHOCYTES % (AUTO) 5.1 % (21-51); MEAN CORPUSCULAR HEMOGLOBIN 30.2 PG (27.0-31.0); MEAN CORPUSCULAR HGB CONC 33.1 g/dL (33.0-36.5); MEAN CORPUSCULAR VOLUME 91.3 FL (78-98); MEAN PLATELET VOLUME 8.7 FL (7.4-10.4); MONOCYTES # (AUTO) 1.1 X10'3 (0-0.9); MONOCYTES % (AUTO) 7.6 % (2-12); NEUTROPHILS # (AUTO) 12.5 X10'3 (1.8-7.7); NEUTROPHILS % (AUTO) 87.2 % (42-75); PLATELET COUNT 103 X10'3 (140-440); RED BLOOD COUNT 3.11 X10'6 (4.70-6.10); RED CELL DISTRIBUTION WIDTH 13.8 % (11.5-14.5); WHITE BLOOD COUNT 14.4 X10'3 (4.5-11.0)
[2020-12-01 04:47] LABS: ALBUMIN 2.9 G/DL (3.4-5.0); ANION GAP 7 (8-16); BLOOD UREA NITROGEN 23 MG/DL (7-18); CALCIUM 8.2 MG/DL (8.5-10.1); CHLORIDE 106 MMOL/L (99-107); CREATININE 0.92 MG/DL (0.60-1.10); GLUCOSE 125 MG/DL (70-104); MAGNESIUM 2.2 MG/DL (1.5-2.4); SODIUM 140 MMOL/L (135-145); TOTAL CARBON DIOXIDE 27.4 MMOL/L (24-32); eGFR 83 ML/MIN
[2020-12-01] MEDS: morphine 4 MG/ML inj SYRINge IV PRN (04:48)
[2020-12-01] MEDS: NOREPINEPHRINE BITARTRATE/D5W 250 ML IV SCH (05:30)
[2020-12-01] MEDS: HYDROcodone/acetaminophen 10/325mg tab PO PRN ×5 (07:18→23:18)
[2020-12-01] MEDS: pantoprazole 40mg Tablet.DR PO SCH (07:30)
[2020-12-01] MEDS: mupirocin 2% nasal ointment 1gm UD NS SCH (08:00)
[2020-12-01] MEDS: vitamin D (cholecalciferol) 1,000 unit tablet PO SCH ×2 (08:27→19:37)
[2020-12-01] MEDS: aspirin 325mg tablet, delayed-release (Ecotrin) PO SCH (08:27)
[2020-12-01] MEDS: sennosides/docusate sodium tablet PO SCH ×2 (08:27→19:35)
[2020-12-01] MEDS: gabapentin 300mg capsule PO SCH (08:27)
[2020-12-01] MEDS: furosemide 20 MG/2 ML vial IV ONE (08:50)
--- NOTE | 2020-12-01 09:30 | NUR ---
isabelle and oxana bautista'd per order
[2020-12-01] MEDS ORDERED: furosemide 40mg/4ml inj ONE (10:45)
[2020-12-01] MEDS: insulin glargine (Lantus) pen - multi-dose SQ SCH (10:57)
--- NOTE | 2020-12-01 11:44 | NUR ---
F/u for consult: Pt seen at bedside with daughter present provided with written and verbal nutrition therapy education for post-op AVR. Pt reports a good appetite and states he is getting full from meals. Pt denies food allergies however reports lactose intolerance and avoids milk to drink, d/w dietary. Pt denies difficulty chewing/swallowing or constipation/diarrhea. LBM 11/29 per EMR however pt reports LBM 11/30. Pt provided with RD contact information. Will remain available. Addendum: 12/01/20 at [address] Amended: Links added.
--- NOTE | 2020-12-01 12:22 | NUR ---
Patient in room ICU 2038. I have received report from PETR Castillo and had the opportunity to ask questions and assume patient care.
--- NOTE | 2020-12-01 12:22 | NUR ---
report given to Batool HUMPHREYS. time allowed for questions pt transferred via wheelchair and monitor with all belongings
--- NOTE | 2020-12-01 17:17 | NUR ---
[place] documentation: I have reviewed and agree with all interventions, assessments performed and documented by PETR Renae.
--- NOTE | 2020-12-01 17:17 | NUR ---
[place] Medication Administration: For this medication-pass time frame, all medication were reviewed, dispensed, administered and documented per hospital policy by PETR Renae.
--- NOTE | 2020-12-01 17:43 | NUR ---
PER DR. HUERTA, NEW RX METOPROLOL TARTRATE 25MG BID. ORDER IS IN.
--- NOTE | 2020-12-01 18:12 | NUR ---
Problems reprioritized. Patient report given, questions answered & plan of care reviewed with PETR Mullen. Patient stable at transfer of care.
--- NOTE | 2020-12-01 18:35 | NUR ---
Patient in room MED 307. I have received report from Howie & Jessica, and had the opportunity to ask questions and assume patient care.
[2020-12-01] MEDS: metoprolol tartrate 25mg tablet PO SCH (19:37)
[2020-12-01] MEDS: atorvastatin 10mg tablet PO SCH (19:38)
[2020-12-01] MEDS: lisinopril 2.5mg tablet PO SCH (21:03)
[2020-12-02 02:00] VITALS: BP 95/53
[2020-12-02] MEDS: HYDROcodone/acetaminophen 10/325mg tab PO PRN ×5 (02:58→21:02)
[2020-12-02 06:00] VITALS: BP 99/71
--- NOTE | 2020-12-02 06:27 | NUR ---
Problems reprioritized. Patient report given, questions answered & plan of care reviewed with Constantine.
[2020-12-02] MEDS: aspirin 325mg tablet, delayed-release (Ecotrin) PO SCH (07:35)
[2020-12-02] MEDS: vitamin D (cholecalciferol) 1,000 unit tablet PO SCH ×2 (07:35→21:01)
[2020-12-02] MEDS: pantoprazole 40mg Tablet.DR PO SCH (07:35)
[2020-12-02] MEDS: sennosides/docusate sodium tablet PO SCH ×2 (07:35→20:59)
--- NOTE | 2020-12-02 08:14 | NUR ---
PATIENT C/O "FEELING DIZZY" B/P 86/59 HEART RHYTHM SHOWS 100% V-PACED , RATE 91. AM MED , LOPRESSOR 25MG, HELD ; DR. ORDONEZ APPRISED. Addendum: 12/02/20 at 2023 by Jazmin Adames RN Amended: Links added.
[2020-12-02 11:00] VITALS: BP 90/54
[2020-12-02] MEDS: insulin glargine (Lantus) pen - multi-dose SQ SCH (11:00)
--- NOTE | 2020-12-02 12:00 | NUR ---
CALL PLACED TO OLIVIA FOR PPM CHECK AT THIS TIME; STATES" HE WILL BE HERE IN AN HOUR. Addendum: 12/02/20 at 2037 by Jazmin Adames RN Amended: Links added.
--- NOTE | 2020-12-02 14:15 | NUR ---
[facility] PPM REP AT BEDSIDE TO CHECK ON PPM. PACER PLACED DUE TO COMPLETE HEART BLOCK; THEREFORE, PACER SENSES ATRIAL RATE, AND PACES VENTRICLES. CALL PLACED TO DR. RUSS. GRIMES GIVEN.HEART RATE CONTINUES AT RATE OF 100. Addendum: 12/02/20 at 2037 by Jazmin Adames RN Amended: Links added.
[2020-12-02] MEDS: metoprolol tartrate 25mg tablet PO SCH ×2 (14:37→21:01)
[2020-12-02 18:00] VITALS: BP 94/54
--- NOTE | 2020-12-02 18:30 | NUR ---
Patient in room MED 307. I have received report from Glenis rn and had the opportunity to ask questions and assume patient care.
--- NOTE | 2020-12-02 19:24 | NUR ---
MD ORDER REVIEWED IN HIS NOTES REGARDING PATIENT TO BE PUT ON 12.5 MG OF LOPRESSOR ER DAILY AND GO HOME ON IN. PATIENT IS ON 25 MG OF LOPRESSOR BID. RN CONTACTED MD FOR CLARIFICATION. MD SAID TO STILL GIVE THE DOSE.
[2020-12-02] MEDS: lisinopril 2.5mg tablet PO SCH (20:59)
[2020-12-02] MEDS: atorvastatin 10mg tablet PO SCH (21:00)
[2020-12-02 22:00] VITALS: BP 105/62
[2020-12-03] MEDS: HYDROcodone/acetaminophen 10/325mg tab PO PRN ×3 (01:52→12:39)
[2020-12-03 02:00] VITALS: BP 100/55
--- NOTE | 2020-12-03 06:00 | NUR ---
Patient in room MED 307. I have received report from PETR Salinas and had the opportunity to ask questions and assume patient care.
--- NOTE | 2020-12-03 06:20 | NUR ---
Problems reprioritized. Patient report given, questions answered & plan of care reviewed with MARYCRUZ HUMPHREYS.
--- NOTE | 2020-12-03 06:30 | NUR ---
Patient in room MED 307. I have received report from PETR Salinas and had the opportunity to ask questions and assume patient care. Patient awake in bed and in no acute distress.
[2020-12-03 07:00] VITALS: BP 100/70
[2020-12-03] MEDS: aspirin 325mg tablet, delayed-release (Ecotrin) PO SCH (08:19)
[2020-12-03] MEDS: sennosides/docusate sodium tablet PO SCH (08:19)
[2020-12-03 08:20] VITALS: BP_SYST 100
[2020-12-03] MEDS: metoprolol tartrate 25mg tablet PO SCH (08:20)
[2020-12-03] MEDS: pantoprazole 40mg Tablet.DR PO SCH (08:20)
[2020-12-03] MEDS: vitamin D (cholecalciferol) 1,000 unit tablet PO SCH (08:21)
[2020-12-03] MEDS ORDERED: ASPI-1071 PO (09:41)
[2020-12-03] MEDS ORDERED: ATOR10TA PO (09:41)
[2020-12-03] MEDS ORDERED: HYDR-3972 PO ×3 (09:41→14:01)
[2020-12-03] MEDS ORDERED: METO25TA6 PO (09:42)
[2020-12-03 09:48] LABS: BASOPHILS # (AUTO) 0.1 X10'3 (0-0.2); BASOPHILS % (AUTO) 0.6 % (0-1); EOSINOPHILS # (AUTO) 0.3 X10'3 (0-0.9); EOSINOPHILS % (AUTO) 2.5 % (0-6); HEMATOCRIT 29.5 % (42.0-52.0); LYMPHOCYTES # (AUTO) 1.1 X10'3 (1.1-4.8); LYMPHOCYTES % (AUTO) 10.4 % (21-51); MEAN CORPUSCULAR HEMOGLOBIN 30.7 PG (27.0-31.0); MEAN CORPUSCULAR HGB CONC 33.8 g/dL (33.0-36.5); MEAN CORPUSCULAR VOLUME 90.8 FL (78-98); MEAN PLATELET VOLUME 8.9 FL (7.4-10.4); MONOCYTES # (AUTO) 1.1 X10'3 (0-0.9); MONOCYTES % (AUTO) 9.8 % (2-12); NEUTROPHILS # (AUTO) 8.3 X10'3 (1.8-7.7); NEUTROPHILS % (AUTO) 76.7 % (42-75); PLATELET COUNT 179 X10'3 (140-440); RED BLOOD COUNT 3.25 X10'6 (4.70-6.10); RED CELL DISTRIBUTION WIDTH 13.8 % (11.5-14.5); WHITE BLOOD COUNT 10.8 X10'3 (4.5-11.0)
[2020-12-03 09:50] LABS: ANION GAP 8 (8-16); BLOOD UREA NITROGEN 25 MG/DL (7-18); BUN/CREATININE RATIO 27.2 (5.4-32.0); CALCIUM 8.6 MG/DL (8.5-10.1); CHLORIDE 101 MMOL/L (99-107); CREATININE 0.92 MG/DL (0.60-1.10); GLUCOSE 138 MG/DL (70-104); POTASSIUM 4.1 MMOL/L (3.5-5.1); SODIUM 136 MMOL/L (135-145); TOTAL CARBON DIOXIDE 27.4 MMOL/L (24-32); eGFR 83 ML/MIN
--- NOTE | 2020-12-03 13:00 | NUR ---
[place]rientee documentation: I have reviewed and agree with all interventions, assessments performed and documented by PETR Templeton.
--- NOTE | 2020-12-03 13:00 | NUR ---
Patient is stable for discharge per MD orders. All discharge instructions reviewed with patient and all questions answered. Patient will make follow-up appointments with appropriate providers. New prescriptions called into pharmacy and patient home medications retrieved from pharmacy. PIV discontinued, cannula intact. briquetting machine operator discontinued. Belongings collected and sent with patient. Patient was wheeled to lobby with daughter and put into private vehicle.
--- NOTE | 2020-12-03 13:00 | NUR ---
[place] Medication Administration: For this medication-pass time frame, all medication were reviewed, dispensed, administered and documented per hospital policy by PETR Templeton.
[2020-12-03] MEDS ORDERED: metoprolol tartrate 12.5mg (1/2 tablet) PO SCH (20:00)
== END 2020-12-03 13:00 | disposition home or self-care (01) | DRG 217 ==
LOC: ER 16:00 → ED HOLD 18:58 → PCU 3S 22:11 → ICU 2S 11-29 10:40 → MED 3N 12-01 12:50
PROVIDERS: ADMIT Internal Medicine; ATTEND Internal Medicine
PROC: 02H63JZ Insertion of Pacemaker Lead into Right Atrium, Percutaneous Approach (ICD-10-PCS; 2020-11-24)
PROC: 02HK3JZ Insertion of Pacemaker Lead into Right Ventricle, Percutaneous Approach (ICD-10-PCS; 2020-11-24)
PROC: 0JH606Z Insertion of Pacemaker, Dual Chamber into Chest Subcutaneous Tissue and Fascia, Open Approach (ICD-10-PCS; principal; 2020-11-24 22:43)
PROC: B32T1ZZ Computerized Tomography (CT Scan) of Left Pulmonary Artery using Low Osmolar Contrast (ICD-10-PCS; 2020-11-25)
PROC: B3201ZZ Computerized Tomography (CT Scan) of Thoracic Aorta using Low Osmolar Contrast (ICD-10-PCS; 2020-11-25)
PROC: B32S1ZZ Computerized Tomography (CT Scan) of Right Pulmonary Artery using Low Osmolar Contrast (ICD-10-PCS; 2020-11-25)
PROC: B4201ZZ Computerized Tomography (CT Scan) of Abdominal Aorta using Low Osmolar Contrast (ICD-10-PCS; 2020-11-25)
PROC: B4241ZZ Computerized Tomography (CT Scan) of Superior Mesenteric Artery using Low Osmolar Contrast (ICD-10-PCS; 2020-11-25)
PROC: B4281ZZ Computerized Tomography (CT Scan) of Bilateral Renal Arteries using Low Osmolar Contrast (ICD-10-PCS; 2020-11-25)
PROC: B4211ZZ Computerized Tomography (CT Scan) of Celiac Artery using Low Osmolar Contrast (ICD-10-PCS; 2020-11-25)
PROC: 02RF08Z Replacement of Aortic Valve with Zooplastic Tissue, Open Approach (ICD-10-PCS; 2020-11-29)
PROC: B24CZZ4 Ultrasonography of Pericardium, Transesophageal (ICD-10-PCS; 2020-11-29)
PROC: 03HY32Z Insertion of Monitoring Device into Upper Artery, Percutaneous Approach (ICD-10-PCS; 2020-11-29)
PROC: 02HV33Z Insertion of Infusion Device into Superior Vena Cava, Percutaneous Approach (ICD-10-PCS; 2020-11-29)
PROC: B548ZZA Ultrasonography of Superior Vena Cava, Guidance (ICD-10-PCS; 2020-11-29)
PROC: 4B02XSZ Measurement of Cardiac Pacemaker, External Approach (ICD-10-PCS; 2020-12-01)
PROC: 4A023N7 Measurement of Cardiac Sampling and Pressure, Left Heart, Percutaneous Approach (ICD-10-PCS; 2020-12-03)
PROC: B41D1ZZ Fluoroscopy of Aorta and Bilateral Lower Extremity Arteries using Low Osmolar Contrast (ICD-10-PCS; 2020-12-03)
PROC: B2111ZZ Fluoroscopy of Multiple Coronary Arteries using Low Osmolar Contrast (ICD-10-PCS; 2020-12-03)
PROC: B41G1ZZ Fluoroscopy of Left Lower Extremity Arteries using Low Osmolar Contrast (ICD-10-PCS; 2020-12-03)
PROC: B3101ZZ Fluoroscopy of Thoracic Aorta using Low Osmolar Contrast (ICD-10-PCS; 2020-12-03)
DX: I44.2 Atrioventricular block, complete (principal); I31.3 Pericardial effusion (noninflammatory); I35.2 Nonrheumatic aortic (valve) stenosis with insufficiency; G47.33 Obstructive sleep apnea (adult) (pediatric); I10 Essential (primary) hypertension; R01.1 Cardiac murmur, unspecified; R55 Syncope and collapse; I25.10 Atherosclerotic heart disease of native coronary artery without angina pectoris; N40.0 Benign prostatic hyperplasia without lower urinary tract symptoms; Z20.822 Contact with and (suspected) exposure to COVID-19; Z79.899 Other long term (current) drug therapy; Z82.49 Family history of ischemic heart disease and other diseases of the circulatory system; Z85.51 Personal history of malignant neoplasm of bladder; Z00.6 Encounter for examination for normal comparison and control in clinical research program; Z87.442 Personal history of urinary calculi; Z90.49 Acquired absence of other specified parts of digestive tract
CPT/HCPCS: 0232T; 93306; 93312; 93325; 93454; 93567; 99291; Z7506; Z7508; 36415; 36600; 71045; 71048; 71275; 74174; 75630; 80048; 80053; 80061; 82330; 82435; 82803; 82947; 82948; 83036; 83735; 83880; 84100; 84132; 84295; 84478; 84484; 85018; 85025; 85347; 85379; 85384; 85610; 85730; 86885; 86900; 86901; 86920; 87081; 87635; 93005; 93308; 93880; 93931; 93971; 94002; 94010; 94760; 97116; 97161; 97530; 99152; 99153; A4215; A4618; A4620; A6258; A6402; A6449; A7000; A7048; C1713; C1751; C1760; C1769; C1785; C9113; C9803; G0378; J0690; J1100; J1265; J1644; J1815; J1885; J1940; J2001; J2060; J2150; J2250; J2270; J2370; J2405; J2704; J2720; J2930; J3010; J3370; J3475; J3480; J3490; J7030; J7040; J7050; J7120; P9045; P9047; Q9967